=== PATIENT | female | born 1970 | race Hispanic/Latino ===

== ENCOUNTER 2020-11-01 06:20 | Day surgery (SDC) | payer OTHER ==
[~2020-11-01] VITALS: Ht 154.9 cm; Wt 110.0 kg
[~2020-11-01 06:20] MED LIST: FLONASE ALLERG9.9 ML NAS; LORATADINE10 MG PO; MULTI VITAMIN1 EACH PO
--- NOTE | 2020-11-01 08:10 | NUR ---
11/01/20 0810 Sherin Scales 0806 PATIENT ARRIVES TO PACU AWAKE BUT DROWSY. DENIES PAIN. RESP EVEN AND UNLABORED, NC AT 3L.
--- NOTE | 2020-11-02 06:41 | OR ---
[facility] [address] [place], [place] [address] Signed DATE OF OPERATION: 11/01/2020 SURGEON: Lucia Sepulveda MD PREOPERATIVE DIAGNOSIS: Positive fecal immunochemical test x2. POSTOPERATIVE DIAGNOSES: 1. 4 mm polyp at 8 cm. 2. 10 mm pedunculated polyp at 22 cm (tattoo, snare). 3. 4 mm polyp at 25 cm. 4. Minimal sigmoid diverticulosis. PROCEDURES: Colonoscopy, snare polypectomy, hot biopsy, and injection of tattoo. ESTIMATED BLOOD LOSS: None. INDICATIONS: Darien is a 50-year-old obese female, who was asked to see me for a colonoscopy. She came with her friend to help interpret. Her FIT test has been positive both in December and March of this year. She has no lower GI complaints. There is no family history of colon cancer or polyps. She has never had a previous colonoscopy. In the office, I gave her a pamphlet on colonoscopy and we reviewed the nature of that test along with the risks including, but not limited to gas bloating, crampy abdominal pain, bleeding, perforation requiring surgery, and missed diagnosis. We also reviewed the need for IV conscious sedation. She had expressed understanding and wished to proceed. DESCRIPTION OF PROCEDURE: Darien was taken into our endoscopy suite and placed in the left lateral decubitus position. She was given a total of 8 mg of Versed and 150 mcg of fentanyl. She was moderately difficult to sedate. She was either asleep with some evidence of sleep apnea or awake and moving around; however, she did well overall. A digital rectal exam was performed and this was unremarkable. The adult colonoscope had been introduced and advanced under direct visualization of camera without difficulty. The sigmoid colon was somewhat tortuous and it took me a few extra minutes to get through that area along with additional sedation and abdominal compression. Fortunately, her prep was quite excellent. We made our way all the way to the cecum without difficulty after getting through the sigmoid colon. The appendiceal orifice and the ileocecal valve were clearly Electronically Signed By: LUCIA SEPULVEDA MD 11/02/20 0641 PATIENT NAME: DARIEN RED OPERATIVE REPORT DATE OF : 68 REPORT #: [id number] PHYSICIAN: LUCIA SEPULVEDA MD PCP: NOEMI RIVERA MD REPORT IS CONFIDENTIAL AND NOT TO BE RELEASED WITHOUT AUTHORIZATION [facility] [address] [place], [place] [address] Signed evident. We took pictures throughout for photodocumentation. The scope was then slowly withdrawn. We used a hot biopsy forceps at 25 and 8 cm to remove the small polyps. The pedunculated polyp at 22 cm was removed with a combination of the snare as well as hot biopsy forceps. We placed a small tattoo next to the base of that polyp to anabel its location. She also has diverticula in the sigmoid colon. They were small in size, few in number, and scattered about. The scope had been retroflexed in the rectum and there was no additional pathology noted above the anal canal. After this, the gas was suctioned out and the colonoscope removed. Darien tolerated the procedure well. RECOMMENDATIONS: I will see Darien back in my office in 7 to 14 days to review her results. Lucia Sepulveda MD ALB/MODL /[id number] cc: Lucia Sepulveda MD [facility] Copies: LUCIA SEPULVEDA MD ~ Electronically Signed By: LUCIA SEPULVEDA MD 11/02/20 0641 PATIENT NAME: SILVANA BONDDARIEN Iglesias OPERATIVE REPORT DATE OF : 68 REPORT #: [id number] PHYSICIAN: LUCIA SEPULVEDA MD PCP: NOEMI RIVERA MD REPORT IS CONFIDENTIAL AND NOT TO BE RELEASED WITHOUT AUTHORIZATION
--- NOTE | 2020-11-02 12:48 | PATH ---
[facility] [address] [facility] [place] [address] Signed SPECIMEN(S): A RECTAL POLYP AT 8 CM SPECIMEN(S): B SIGMOID POLYP AT 22 CM SPECIMEN(S): C COLON POLYP AT 22 CM SPECIMEN(S): D COLON POLYP AT 25 CM SPECIMEN SOURCE: A. RECTAL POLYP AT 8 CM B. SIGMOID POLYP AT 22 CM C. COLON POLYP AT 22 CM D. COLON POLYP AT 25 CM CLINICAL HISTORY: Colonoscopy with possible biopsy and/or polypectomy. FIT positive, guaiac positive. Postop: Colon polyps, diverticulosis. MICROSCOPIC DESCRIPTION: Histologic sections of all submitted blocks are examined by light microscopy. These findings, together with the gross examination, support the pathologic diagnosis. FINAL PATHOLOGIC DIAGNOSIS: A. Rectum, 8 cm, polypectomy: - Tubular adenoma. B. Colon, sigmoid at 22 cm, polypectomy: - Tubular adenoma. C. Colon, 22 cm, polypectomy: - Tubular adenoma. D. Colon, 25 cm, polypectomy: - Tubular adenoma. P:[facility]:C2NR GROSS DESCRIPTION: Four specimens are received in four containers, labeled "MP." A. The specimen, labeled "MP, 1," and designated on the requisition "rectal polyp at 8 cm," is received in formalin and consists of two loomis soft tissue fragments that measure 0.3 cm in greatest dimension. The specimen is entirely submitted in cassette (A1). B. The specimen, labeled "MP, 2," and designated on the requisition "sigmoid polyp at 22 cm," is received in formalin and consists of one polyp with multiple loomis soft tissue fragments that measure 1.0 cm in greatest dimension. The polyp is inked black and trisected and entirely submitted in cassette (B1). The remaining specimen is entirely PATIENT NAME: DARIEN RED PATHOLOGY DATE OF : 68 REPORT #: [id number] PHYSICIAN: DANIELLE PATHOLOGY PCP: NOEMI RIVERA MD REPORT IS CONFIDENTIAL AND NOT TO BE RELEASED WITHOUT AUTHORIZATION [facility] [address] [place], [place] [address] Signed submitted in cassette (B2). C. The specimen, labeled "MP, 3," and designated on the requisition "colon polyp at 22 cm," is received in formalin and consists of one loomis soft tissue polypoid fragment that measures 0.6 x 0.6 x 1.1 cm. The specimen is inked black, trisected, and is entirely submitted in cassette (C1). Tissue is friable upon sectioning. D. The specimen, labeled "MP, 4," and designated on the requisition "colon polyp at 25 cm," is received in formalin and consists of one loomis soft tissue fragment that measures 0.3 cm in greatest dimension. The specimen is entirely submitted in cassette (D1). AT (under the direct supervision of a pathologist) The Gross Description was prepared using a voice recognition system. The report was reviewed for accuracy; however, sound-alike word errors, addition and/or deletions may occur. If there is any question about this report, please contact Client Services. PERFORMING LABORATORY: The technical component was performed by [facility], [address] [place] [id number] ([employer]: Chloé Carver MD; CLIA# [id number]). Professional interpretation [facility] performed by [facility], [address] [address] (CLIA# [id number]). Diagnostician: Brennon Colon MD Pathologist Electronically Signed 11/02/2020 Copies: ~ PATIENT NAME: DARIEN RED PATHOLOGY DATE OF : 68 REPORT #: [id number] PHYSICIAN: DANIELLE CLAYTON PCP: NOEMI RIVERA MD REPORT IS CONFIDENTIAL AND NOT TO BE RELEASED WITHOUT AUTHORIZATION
== END 2020-11-01 08:42 | disposition home or self-care (01) ==
LOC: OPS 06:20 → DS 06:20 → OPS 06:45 → DS 08:15 → OPS 08:42
PROVIDERS: ATTEND Colon & Rectal Surgery
PROC: 0DBE8ZX Excision of Large Intestine, Via Natural or Artificial Opening Endoscopic, Diagnostic (ICD-10-PCS; 2020-11-01)
PROC: 0DBN8ZX Excision of Sigmoid Colon, Via Natural or Artificial Opening Endoscopic, Diagnostic (ICD-10-PCS; 2020-11-01)
PROC: 3E0H8KZ Introduction of Other Diagnostic Substance into Lower GI, Via Natural or Artificial Opening Endoscopic (ICD-10-PCS; 2020-11-01)
PROC: 0DBP8ZX Excision of Rectum, Via Natural or Artificial Opening Endoscopic, Diagnostic (ICD-10-PCS; principal; 2020-11-01 06:45)
DX: K57.30 Diverticulosis of large intestine without perforation or abscess without bleeding (principal); D12.5 Benign neoplasm of sigmoid colon; D12.7 Benign neoplasm of rectosigmoid junction; Q43.8 Other specified congenital malformations of intestine; E66.9 Obesity, unspecified; J30.9 Allergic rhinitis, unspecified; D64.9 Anemia, unspecified; K21.9 Gastro-esophageal reflux disease without esophagitis; E78.00 Pure hypercholesterolemia, unspecified; Z79.899 Other long term (current) drug therapy; Z68.42 Body mass index [BMI] 45.0-49.9, adult; Z90.49 Acquired absence of other specified parts of digestive tract
CPT/HCPCS: 99153; G0500; J2250; J3010